=== PATIENT | female | born 1970 | race Caucasian/White ===

== ENCOUNTER 2019-04-29 09:00 | Outpatient (CLI) | payer BC ==
[2014-01-23 09:29] VITALS: BMI 28.4
[~2019-04-29 09:00] MED LIST: PERCOCET 10/3251 TA1 PO; ROBAXIN-750750 MG PO
== END 2019-04-29 09:30 | disposition home or self-care (01) ==
LOC: D.MAMMO 09:00
PROVIDERS: ATTEND Internal Medicine
DX: Z12.31 Encounter for screening mammogram for malignant neoplasm of breast (principal)